=== PATIENT | male | born 1985 ===

== ENCOUNTER 2021-12-04 11:52 | Emergency (ER) | payer SELFPAY ==
[2021-12-04] MEDS ORDERED: ACETAMINOPHEN 325 MG TAB PO ONE (12:41)
[2021-12-04] MEDS ORDERED: IBUPROFEN 600 MG TAB PO ONE (12:41)
--- NOTE | 2021-12-04 12:47 | Emergency Department Report ---
ED General Adult HPI - General Chief complaint: Extremity Problem,Nontraumatic Stated complaint: RT HAND PAIN Time Seen by Provider: 12/04/21 12:15 Source: patient Mode of arrival: Ambulatory Limitations: No Limitations - History of Present Illness Initial comments: 36 year old [place] speaking male who is hearing impaired was brought to ED was with c/o joint pain. reports that patient has been complaining of pain since involved in work accident in March 2021. At the time he has also suffered right index finger amputation. He was seen by Ortho and had it repaired. He was instructed to follow up but he never did. He does not have a PCP. She states he has been complainining a little more about it recently and this morning noticed he felt hot to touch. She reports that he has had recent cold and sneezing. They deny any swell, joint redness, SOB, wheezing or any additional symptoms. Patient has not been vaccinated against COVID 19. MD Complaint: joint pain -: month(s) - Related Data Previous Rx's Medication Instructions Recorded Last Taken Type Ibuprofen [Motrin] 600 mg PO Q8H PRN #30 tablet 12/04/21 Unknown Rx Allergies Allergy/AdvReac Type Severity Reaction Status Date / Time No Known Allergies Allergy Verified 12/04/21 12:07 ED Review of Systems ROS: Stated complaint: RT HAND PAIN Other details as noted in HPI Comment: All other systems reviewed and negative Eyes: denies: eye pain, eye discharge, vision change ENT: denies: ear pain, throat pain, dental pain, hearing loss, congestion Respiratory: denies: cough, shortness of breath, SOB with exertion, SOB at rest, wheezing Cardiovascular: denies: chest pain, palpitations Gastrointestinal: denies: abdominal pain, nausea, diarrhea, constipation, hematemesis, melena, hematochezia Genitourinary: denies: urgency, dysuria, testicular pain, testicular mass Musculoskeletal: arthralgia Skin: denies: rash, lesions, change in color, change in hair/nails, pruritus Neurological: denies: headache, weakness, paresthesias, abnormal gait, vertigo Psychiatric: denies: anxiety, depression, auditory hallucinations, visual hallu cinations, homicidal thoughts, suicidal thoughts Hematological/Lymphatic: denies: easy bleeding, easy bruising, swollen glands ED Past Medical Hx - Past Medical History Previous Medical History?: No - Surgical History Past Surgical History?: No - Medications Home Medications: Home Medications Medication Instructions Recorded Confirmed Last Taken Type Ibuprofen [Motrin] 600 mg PO Q8H PRN #30 tablet 12/04/21 Unknown Rx ED Physical Exam - General Limitations: No Limitations General appearance: alert, in no apparent distress - Head Head exam: Present: atraumatic, normocephalic, normal inspection - Eye Eye exam: Present: normal appearance, PERRL, EOMI Pupils: Present: normal accommodation - Neck Neck exam: Present: normal inspection, full ROM. Absent: meningismus - Respiratory Respiratory exam: Present: normal lung sounds bilaterally. Absent: respiratory distress, wheezes, rales, rhonchi - Cardiovascular Cardiovascular Exam: Present: regular rate, normal rhythm, normal heart sounds - Extremities Exam Extremities exam: Present: normal inspection, full ROM, normal capillary refill. Absent: tenderness, pedal edema, joint swelling, calf tenderness - Back Exam Back exam: Present: normal inspection, full ROM - Neurological Exam Neurological exam: Present: alert, oriented X3, CN II-XII intact, normal gait - Psychiatric Psychiatric exam: Present: normal affect, normal mood - Skin Skin exam: Present: intact ED Course Vital Signs 12/04/21 12/04/21 12:06 13:46 Temperature 100.6 F H 100.1 F H Pulse Rate 92 H 90 Respiratory 18 18 Rate Blood Pressure 125/71 110/64 O2 Sat by Pulse 98 97 Oximetry ED Medical Decision Making - Medical Decision Making 36 year old [place] speaking male who is hearing impaired was brought to ED was with c/o joint pain. reports that patient has been complaining of pain since involved in work accident in March 2021. At the time he has also suffered right index finger amputation. He was seen by Ortho and had it repaired. He was instructed to follow up but he never did. He does not have a PCP. She states he has been complainining a little more about it recently and this morning noticed he felt hot to touch. She reports that he has had recent cold and sneezing. They deny any swell, joint redness, SOB, wheezing or any additional symptoms. Patient has not been vaccinated against COVID 19. Patient temp is improving with meds. Patient is not toxic or ill appearing and not in any acute distress. He ambulates well and he is neuro intact. He has no joint swelling or erythema to suggest septic joint. He has no meningeal signs on exam. Chest is clear to auscultation. Abdomen soft and nontender. He appears well-hydrated. Do not suspect sepsis or any other major infectious process requiring emergent testing, or admission at this time. He likely has these chronic joint pain, but increasing pain as well as URI symptoms and with fever it could be related to nonspecific viral illness including COVID-19. I recommend that patient get an outpatient COVID-19 test. He will be given medication for pain and referral to local PCP. Patient was stable at time of discharge. Critical care attestation.: If time is entered above; I have spent that time in minutes in the direct care of this critically ill patient, excluding procedure time. ED Disposition Clinical Impression: Arthralgia, Viral illness Disposition: HOME / SELF CARE / HOMELESS Is pt being admited?: No Does the pt Need Aspirin: No Condition: Stable Instructions: Viral Illness, Adult, Joint Pain, [id number] Additional Instructions: I recommend patient get an outpatient COVID 19 test at local pharmacy or clinic or urgent as this could be cause of his recent increased body aches and fever. In meantime he should quarantine at home until he gets results. Give the motrin as prescribed for pain. Follow up with local PCP listed on your discharge instructions. Return to ED if worse. Prescriptions: Ibuprofen [Motrin] 600 mg PO Q8H PRN #30 tablet PRN Reason: Pain Referrals: ZEB LONG MD [Referring] - 3-5 Days Time of Disposition: 13:52
[2021-12-04 13:49] VITALS: BP 110/64
== END 2021-12-04 15:16 | disposition home or self-care (01) ==
LOC: ED 11:52
DX: M25.50 Pain in unspecified joint (principal); B34.9 Viral infection, unspecified
CPT/HCPCS: 99282